=== PATIENT | female | born 1965 | race Caucasian/White ===

== ENCOUNTER 2019-05-11 05:33 | Emergency (ER) | payer OTHER ==
[~2019-05-11] VITALS: Ht 157.5 cm; Wt 117.9 kg
[2019-05-11] MEDS ORDERED: LIPITOR40 MG (06:03)
[2019-05-11] MEDS ORDERED: SYNTHROID50 MCG (06:03)
[2019-05-11] MEDS ORDERED: HYZAAR 100-12.1 EACH (06:03)
== END 2019-05-11 13:19 | disposition home or self-care (01) ==
LOC: ER 05:33
DX: B34.9 Viral infection, unspecified (principal); R50.9 Fever, unspecified

== ENCOUNTER 2019-05-28 23:13 | Emergency (ER) | payer OTHER ==
[~2019-05-28] VITALS: Ht 157.5 cm; Wt 108.9 kg
[~2019-05-28 23:13] MED LIST: HYZAAR 100-12.1 EACH; LIPITOR40 MG; SYNTHROID50 MCG
[2019-05-29] MEDS ORDERED: ZEBUTAL 50-3251 EACH PO (03:23)
== END 2019-05-29 03:32 | disposition home or self-care (01) ==
LOC: ER 23:13
DX: G43.109 Migraine with aura, not intractable, without status migrainosus (principal)

== ENCOUNTER 2020-02-26 21:32 | Emergency (ER) | payer OTHER ==
[~2020-02-26] VITALS: Ht 157.5 cm; Wt 113.4 kg
[~2020-02-26 21:32] MED LIST changes: +ZEBUTAL 50-3251 EACH PO
[2020-02-26] MEDS ORDERED: METFORMIN HCL500 MG (21:50)
== END 2020-02-26 22:45 | disposition home or self-care (01) ==
LOC: ER 21:32
DX: S02.2XXA Fracture of nasal bones, initial encounter for closed fracture (principal); S13.4XXA Sprain of ligaments of cervical spine, initial encounter; S80.01XA Contusion of right knee, initial encounter; S00.511A Abrasion of lip, initial encounter; W01.198A Fall on same level from slipping, tripping and stumbling with subsequent striking against other object, initial encounter; Y93.01 Activity, walking, marching and hiking; Y92.098 Other place in other non-institutional residence as the place of occurrence of the external cause; Y99.8 Other external cause status